=== PATIENT | female | born 1975 | race Caucasian/White ===

== ENCOUNTER 2017-10-28 14:36 | Emergency (ER) | payer SELFPAY ==
[2017-10-28 15:29] LABS: Bilirubin Negative (Negative); Blood, Urine Small (Negative); Clarity CLOUDY (Clear); Glucose, Urine (Dipstick) Negative (Negative); Leukocyte Negative (Negative); Nitrite Negative (Negative); Protein, Urine (Dipstick) Trace mg/dL (Neg-Trace); Specific Gravity, Urine 1.027 (1.002-1.036)
[2017-10-28] MEDS ORDERED: cefTRIAXone\\ROCEPHIN 250 MG VIAL ONE (15:29)
[2017-10-28] MEDS ORDERED: Azithromycin 250 MG TAB ONE (15:29)
[2017-10-28] MEDS ORDERED: Lidocaine 1% PF 5 ML VIAL ONE (15:29)
[2017-10-28 15:31] LABS: Bacteria/HPF None Seen HPF (None Seen); WBC/HPF 0-3 HPF (0-3)
[2017-10-28 15:33] LABS: Hyaline Casts/LPF 0-3 HYALINE CAST LPF (0-3 Hyaline); Manual Microscopic Reviewed? No Path Casts Seen; Pathc Cast-AUWi Flag 2.76 (0-2.49)
[2017-11-01 00:41] LABS: Chlamydia by PCR Not Detected (NotDetected); GC by PCR Not Detected (NotDetected)
== END 2017-10-28 15:48 | disposition home or self-care (01) ==
LOC: ERS 14:36
DX: Z20.2 Contact with and (suspected) exposure to infections with a predominantly sexual mode of transmission (principal); F43.10 Post-traumatic stress disorder, unspecified; F17.210 Nicotine dependence, cigarettes, uncomplicated
CPT/HCPCS: 81003; 81015; 87086; 87480; 87491; 87510; 87591; 87660; 96372; J0696; J2001

== ENCOUNTER 2017-12-29 14:11 | Emergency (ER) | payer SELFPAY | END 2017-12-29 15:09 | disposition left against medical advice (07) | LOC: ERS 14:11 | DX: Z53.21 Procedure and treatment not carried out due to patient leaving prior to being seen by health care provider (principal) ==

== ENCOUNTER 2018-02-11 02:57 | Emergency (ER) | payer SELFPAY ==
[2018-02-11 22:44] LABS: Chlamydia by PCR Not Detected (NotDetected); GC by PCR Not Detected (NotDetected)
== END 2018-02-11 04:43 ==
LOC: ERS 02:57
DX: N89.8 Other specified noninflammatory disorders of vagina (principal); F17.210 Nicotine dependence, cigarettes, uncomplicated; Z71.6 Tobacco abuse counseling
CPT/HCPCS: 87480; 87491; 87510; 87591; 87660; 99406

== ENCOUNTER 2018-09-14 12:53 | Emergency (ER) | payer SELFPAY ==
[~2018-09-14 12:53] MED LIST: Iopamidol 370 76% 100 ML VIAL ONE
[2018-09-14] MEDS ORDERED: Ondansetron ODT 4 MG TAB ONE (13:14)
[2018-09-14 13:56] LABS: #Lymphocytes 1.7 thou/uL (1.20-3.40); #Monocytes 0.3 thou/uL (0.11-0.59); #Neutrophils 10.1 thou/uL (1.40-6.50); %Basophils 0.1 % (0.0-1.0); %Eosinophils 0.1 % (0.0-10.0); %Lymphocytes 13.8 % (21.0-51.0); %Monocytes 2.3 % (0.0-10.0); %Neutrophils 83.7 % (42.0-75.0); Hemoglobin 15.8 g/dL (12.0-16.0); Mean Corpuscular HGB CONC 32.8 g/dL (32.0-36.0); Mean Corpuscular Hemoglobin 29.1 pg (27.0-31.0); Mean Corpuscular Volume 88.7 fL (78.0-98.0); Mean Platelet Volume 8.2 fL (7.4-10.4); Platelet Count 277 thou/uL (130-400); RBC Distribution Width 11.4 % (11.5-14.5); Red Blood Cell (RBC) Count 5.43 mill/uL (4.20-5.40); White Blood Cell (WBC) Count 12.1 thou/uL (4.8-10.8)
[2018-09-14] MEDS ORDERED: Ondansetron PF 4 MG/2 ML Vial ONE (14:15)
[2018-09-14 14:17] LABS: ALT (SGPT) 64 U/L (8-55); AST (SGOT) 38 U/L (5-34); Albumin 5.4 g/dL (3.5-5.0); Alkaline Phosphatase 71 U/L (40-150); Anion Gap 14 mmol/L (10-20); BUN (Urea Nitrogen) 18 mg/dL (7.0-18.7); Bilirubin, Total 0.7 mg/dL (0.2-1.2); Calc. Creatinine Clearance 0 mL/min (70-130); Calcium 10.5 mg/dL (7.8-10.44); Carbon Dioxide 26 mmol/L (22-29); Chloride 105 mmol/L (98-107); Estimated GFR-MDRD 65; Globulin 3.3 g/dL (2.4-3.5); Glucose 131 mg/dL (70-105); Lipase 29 U/L (8-78); Potassium 3.4 mmol/L (3.5-5.1); Protein, Total 8.7 g/dL (6.0-8.3); Sodium 142 mmol/L (136-145)
[2018-09-14] MEDS ORDERED: Glycopyrrolate 0.2 MG/ML 5 ML SYRINGE SLOW IVP SCH (15:15)
--- NOTE | 2018-09-14 15:27 | CT ---
CT ABDOMEN AND PELVIS WITH CONTRAST: Date: 09/14/18 HISTORY: Abdominal pain. COMPARISON: None. FINDINGS: The lung bases are clear. No pericardial effusion. There is a simple cyst in hepatic segment II, and also likely a simple cyst in hepatic segment VII. Prior cholecystectomy. Pancreas unremarkable. Spleen unremarkable. Kidneys are unremarkable, aside from a hypodensity in the intrapolar left kidney, which measures grea ter than fluid attenuation at 11.0 mm. Mild diverticular disease of the sigmoid colon without active current inflammation. The appendix is v isualized and is normal. Multiple hypodensities are present along the right adnexa. Moderate facet arthropathy lower lumbar sp ine IMPRESSION: 1. 11.0 mm hypodensity intrapolar left kidney measuring greater than fluid attenuation. A follow-up renal protocol CT or MRI is recommended. 2. Lobular hypodensity along the right adnexa may reflect cyst of the ovarian remnant. Lymphocele is also a possibility, or a peritoneal occlusion cyst. 3. Normal appendix. 4. No acute inflammatory process in the abdomen or pelvis. 5. Hepatic cysts. POS: VINCE
[2018-09-14 15:54] LABS: Bilirubin Negative (Negative); Blood, Urine Moderate (Negative); Clarity CLEAR (Clear); Glucose, Urine (Dipstick) Negative (Negative); Leukocyte Negative (Negative); Nitrite Negative (Negative); Protein, Urine (Dipstick) 30 mg/dL (Neg-Trace); Urobilinogen 0.2 mg/dL (0.2-1.0); pH, Urine 6.5 (5.0-9.0)
[2018-09-14 15:58] LABS: Bacteria/HPF None Seen HPF (None Seen); Hyaline Casts/LPF 0-3 HYALINE CAST LPF (0-3 Hyaline); Pathc Cast-AUWi Flag 0.68 (0-2.49); Specific Gravity, Urine Greater than 1.060 (1.002-1.036); Squamous Epithelial 0-3 HPF (0-3); WBC/HPF 0-3 HPF (0-3)
--- NOTE | 2018-09-18 12:02 | EKG ---
Test Reason : VOMITING Blood Pressure : / mmHG Vent. Rate : 077 BPM Atrial Rate : 077 BPM P-R Int : 166 ms QRS Dur : 078 ms QT Int : 416 ms P-R-T Axes : 058 032 053 degrees QTc Int : 470 ms Normal sinus rhythm Possible Left atrial enlargement Borderline ECG Confirmed by PJ VAUGHN DO ([id number]), production editor KANNAN ROBERTSON ([id number] on 09/18/2018 12:02:33 PM Referred By: JOHANA Confirmed By:PJ VAUGHN DO
== END 2018-09-14 15:40 | disposition home or self-care (01) ==
LOC: ERS 12:53
DX: R11.2 Nausea with vomiting, unspecified (principal); R10.9 Unspecified abdominal pain; F43.10 Post-traumatic stress disorder, unspecified; F17.210 Nicotine dependence, cigarettes, uncomplicated
CPT/HCPCS: 36415; 74177; 80053; 81003; 81015; 83690; 85025; 93005; 96361; 96374; J2405; Q0162; Q9967